=== PATIENT | female | born 1950 ===

== ENCOUNTER 2016-07-19 10:38 | Emergency (ER) | payer MEDICARE ==
[2016-07-19 10:45] VITALS: RESP 18; TEMP 98.9
--- NOTE | 2016-07-19 11:42 | C.PDOC ---
History Of Present Illness 66 year old patient, with a past medical history of hypertension, asthma, hypercholesterolemia, hyperlipidemia, hypothyroidism, osteoporosis, and gall bladder disease, presents to the ED complaining of thoracic back pain for the past week. Patient states the pain is great on the right than left. The pain is worse with hot packs or hot water use. She took 400 mg Motrin this morning. Patient denies numbness, weakness, incontinence, nausea or vomiting. Time Seen by Provider: 07/19/16 11:32 Chief Complaint (Nursing): Back Pain History Per: Patient History/Exam Limitations: no limitations Onset/Duration Of Symptoms: Days (a week) Current Symptoms Are (Timing): Still Present Quality Of Discomfort: "Pain" Severity: Mild Pain Scale Rating Of: 3 Associated Symptoms: None Recent travel outside of the [place]: No Past Medical History Reviewed: Historical Data, Nursing Documentation, Vital Signs Vital Signs: Last Vital Signs Temp 98.9 F 07/19/16 10:43 Pulse 81 07/19/16 12:47 Resp 18 07/19/16 12:47 BP 145/82 07/19/16 12:47 Pulse Ox 96 07/19/16 13:45 - Medical History PMH: Asthma, Gall Bladder Disease, HTN, Hypercholesterolemia, Hyperlipidemia, Hypothyroidism, Osteoporosis Family History: States: Unknown Family Hx - Social History Hx Alcohol Use: No Hx Substance Use: No - Immunization History Hx Tetanus Toxoid Vaccination: No Hx Influenza Vaccination: No Review Of Systems Except As Marked, All Systems Reviewed And Found Negative. Gastrointestinal: Negative for: Nausea, Vomiting Genitourinary: Negative for: Incontinence Musculoskeletal: Positive for: Back Pain Neurological: Negative for: Weakness, Numbness Physical Exam - Physical Exam Appears: Non-toxic, No Acute Distress Skin: Warm, Dry Head: Atraumatic, Normacephalic Eye(s): bilateral: PERRL, EOMI Neck: Normal ROM, Supple Chest: Symmetrical Cardiovascular: Rhythm Regular Respiratory: Normal Breath Sounds, No Rales, No Rhonchi, No Wheezing Gastrointestinal/Abdominal: Soft, No Tenderness Back: No CVA Tenderness, No Vertebral Tenderness, No Decreased ROM, Paraspinal Tenderness (right>left) Extremity: Normal ROM Neurological/Psych: Oriented x3, Normal Speech, Normal Cognition, Normal Motor, Normal Sensation Gait: Steady ED Course And Treatment O2 Sat by Pulse Oximetry: 96 (RA) Pulse Ox Interpretation: Normal Progress Note: Plan: -Toradol Reevaluation Time: 12:39 Reassessment Condition: Improved Medical Decision Making Medical Decision Making: R thoracic/lumbar strain/sprain, no trauma, no midline lumbar pain, LOW susp of spinal issue Disposition Doctor Will See Patient In The: Office Counseled Patient/Family Regarding: Studies Performed, Diagnosis - Disposition Referrals: Jonatan Rodriguez MD [Non-Staff] - Disposition: HOME/ ROUTINE Disposition Time: 12:40 Condition: GOOD Additional Instructions: ibuprofeno 600 mg cada 6 horas he necessario [place] 1/2 hora por hora, nada caliente NO BENJAMIN KIRK CALIENTE Sigue con Dr. Rodriguez Instructions: Musculoskeletal Pain (ED) Print Language: ICELANDIC - Clinical Impression Clinical Impression: Low back strain - Scribe Statement The provider has reviewed the documentation as recorded by the Scribe Shamika Martinez Provider Attestation: All medical record entries made by the Scribe were at my direction and personally dictated by me. I have reviewed the chart and agree that the record accurately reflects my personal performance of the history, physical exam, medical decision making, and the department course for this patient. I have also personally directed, reviewed, and agree with the discharge instructions and disposition.
[2016-07-19 12:48] VITALS: BP 145/82; PULSE 81
[2016-07-19 13:46] VITALS: O2SAT 96
== END 2016-07-19 13:00 | disposition home or self-care (01) ==
LOC: C.ER 10:38
DX: S39.012A Strain of muscle, fascia and tendon of lower back, initial encounter (principal); X58.XXXA Exposure to other specified factors, initial encounter
CPT/HCPCS: 96372; 99283; J1885

== ENCOUNTER 2016-10-02 18:48 | Emergency (ER) | payer MEDICARE ==
[2016-10-02 18:59] VITALS: RESP 20
--- NOTE | 2016-10-02 20:01 | C.PDOC ---
History Of Present Illness Patient is a 66 year old female who presents to the ER after she slipped and fell outside approximately 1 hour [employer]. Patient states she injured her face and right shoulder; suffering abrasions to the nose, upper lips, and feeling like her front tooth is loose. Denies LOC, neck pain, numbness, weakness, nausea, or vomiting. - HPI Time Seen by Provider: 10/02/16 19:19 Chief Complaint (Nursing): Trauma History Per: Patient History/Exam Limitations: no limitations Onset/Duration Of Symptoms: Hrs (1) Injury Occurred (Timing): Just Before Arrival Location Of Injury: Left: Shoulder, Anterior: Face Associated Symptoms: Other (No symptoms) Recent travel outside of the [place]: No Past Medical History Reviewed: Historical Data, Nursing Documentation, Vital Signs Vital Signs: Last Vital Signs Temp 98.2 F 10/02/16 20:17 Pulse 102 H 10/02/16 20:17 Resp 20 10/02/16 20:17 BP 134/78 10/02/16 20:17 Pulse Ox 97 10/02/16 20:28 - Medical History PMH: Asthma, Gall Bladder Disease, HTN, Hypercholesterolemia, Hyperlipidemia, Hypothyroidism, Osteoporosis Surgical History: No Surg Hx Family History: States: Unknown Family Hx - Social History Hx Alcohol Use: No Hx Substance Use: No - Immunization History Hx Tetanus Toxoid Vaccination: No Hx Influenza Vaccination: No Review Of Systems Gastrointestinal: Negative for: Nausea, Vomiting Musculoskeletal: Positive for: Shoulder Pain (Left). Negative for: Neck Pain Skin: Positive for: Other (Facial abrasions) Neurological: Negative for: Other (LOC) Physical Exam - Physical Exam Appears: Non-toxic, No Acute Distress Skin: Warm, Dry, No Rash Head: Atraumatic, Normacephalic Eye(s): bilateral: Normal Inspection, PERRL, EOMI Ear(s): Bilateral: Normal Nose: Normal, No Epistaxis, No Deformity, Tenderness (To nasal bridge), No Septal Hematoma Oral Mucosa: Moist Lips: Abrasion (1cm to mid upper lip) Teeth: No Dentures, Loose (Right upper central incisor), No Avulsed, No Other ( Fracture) Gingiva: Normal Appearing Throat: No Erythema, No Exudate Neck: Normal, No Midline Cervical Tenderness, No Paracervical Tenderness, Supple Chest: Symmetrical, No Tenderness Cardiovascular: Rhythm Regular, No Friction Rub, No Murmur Respiratory: Normal Breath Sounds, No Rales, No Rhonchi, No Wheezing Gastrointestinal/Abdominal: Soft, No Tenderness Back: CVA Tenderness, No Vertebral Tenderness, No Paraspinal Tenderness Extremity: Normal ROM, Tenderness (Mild to right shoulder), No Deformity, No Swelling Neurological/Psych: Oriented x3, Normal Speech, Normal Cognition, Normal Motor Gait: Steady ED Course And Treatment O2 Sat by Pulse Oximetry: 97 (Room air) Pulse Ox Interpretation: Normal - Other Rad Right shoulder X-Ray: Interpreted by Me Interpretation: No fracture or dislocation Nasal bones X-Ray: Interpreted by Me Interpretation: No fracture Progress Note: Nasal bones and right shoulder x-ray ordered. Motrin administered. Medical Decision Making Medical Decision Making: Wound was cleansed with saline and bacitracin applied. Disposition - Disposition Referrals: Benjamin Landaverde DMD [Staff Provider] - [facility] [Outside] Disposition: HOME/ ROUTINE Disposition Time: 20:24 Condition: GOOD Additional Instructions: Follow up with the dentist within 1-2 days without fail. Return if worsened. Prescriptions: Acetaminophen [Tylenol] 325 mg PO Q6 PRN #30 tab PRN Reason: Pain, Mild (1-3) Ibuprofen [Motrin] 600 mg PO TID #21 tab Instructions: Acute Dental Trauma (ED), Nasal Contusion (ED) Print Language: CAP[place] VERDEAN - Clinical Impression Clinical Impression: Dental trauma, Lip abrasion, Nasal contusion - Scribe Statement The provider has reviewed the documentation as recorded by the Scribe Luis Gates All medical record entries made by the Scribe were at my direction and personally dictated by me. I have reviewed the chart and agree that the record accurately reflects my personal performance of the history, physical exam, medical decision making, and the department course for this patient. I have also personally directed, reviewed, and agree with the discharge instructions and disposition.
[2016-10-02 20:18] VITALS: BP 134/78; PULSE 102; TEMP 98.2
[2016-10-02] MEDS ORDERED: Bacitracin 500 Units/gm Oint Foilpak UD ONE (20:22)
[2016-10-02 20:27] VITALS: O2SAT 97
--- NOTE | 2016-10-03 10:22 | RAD ---
PROCEDURE: Radiographs of Nasal Bones HISTORY: nose trauma COMPARISON: None available. TECHNIQUE: Frontal and lateral radiographs of the nasal bones. FINDINGS: No fracture of nasal bones visualized. No destructive lesion. IMPRESSION: No acute nasal bone fracture.
--- NOTE | 2016-10-03 10:22 | RAD ---
PROCEDURE: Radiographs of the Right Shoulder HISTORY: injury and pain COMPARISON: No prior. FINDINGS: BONES: There is diffuse bone demineralization. . No acute fracture or bone destruction. Bone alignment is normal. JOINTS: There is mild degenerative osteoarthrosis in the glenohumeral and acromioclavicular joints. SOFT TISSUES: Normal. OTHER FINDINGS: None. IMPRESSION: No acute displaced fracture or dislocation.
== END 2016-10-02 20:32 | disposition home or self-care (01) ==
LOC: C.ER 18:48
DX: S00.33XA Contusion of nose, initial encounter (principal); S00.511A Abrasion of lip, initial encounter; S09.93XA Unspecified injury of face, initial encounter; W01.0XXA Fall on same level from slipping, tripping and stumbling without subsequent striking against object, initial encounter; M81.0 Age-related osteoporosis without current pathological fracture; E78.00 Pure hypercholesterolemia, unspecified; I10 Essential (primary) hypertension; E78.5 Hyperlipidemia, unspecified